=== PATIENT | male | born 1965 | race Hispanic/Latino ===

== ENCOUNTER 2023-11-17 06:25 | Day surgery (SDC) | payer OTHER ==
[~2023-11-17] VITALS: Ht 180.3 cm; Wt 154.2 kg
[2023-11-17] VITALS (11 sets, daily range): BP systolic 104–149; BP diastolic 49–79; PULSE 72–95; RESP 14–19
[~2023-11-17 06:25] MED LIST: GLIP5TAB15 PO; LISI20TA24 PO; METF-444 PO; PRAV40TA3 PO; SEMA2PEN SQ
[2023-11-17] MEDS: 0.9%NACL 1000ML 1,000 ML IV ONE (07:24)
[2023-11-17] MEDS ORDERED: LIDOCAINE PF 100MG/5ML (2%) SYRINGE 5ML ONE (07:53)
[2023-11-17] MEDS ORDERED: PROPOFOL 10 MG/ML 20ML VIAL IV ONE (07:53)
== END 2023-11-17 09:15 | disposition home or self-care (01) ==
LOC: DAH 06:25
PROVIDERS: ATTEND Surgery
DX: R14.2 Eructation (principal); K22.89 Other specified disease of esophagus; K25.9 Gastric ulcer, unspecified as acute or chronic, without hemorrhage or perforation; K31.89 Other diseases of stomach and duodenum; K30 Functional dyspepsia; I10 Essential (primary) hypertension; E78.00 Pure hypercholesterolemia, unspecified; E66.01 Morbid (severe) obesity due to excess calories; M13.0 Polyarthritis, unspecified; E11.319 Type 2 diabetes mellitus with unspecified diabetic retinopathy without macular edema; Z90.49 Acquired absence of other specified parts of digestive tract; Z79.899 Other long term (current) drug therapy; Z68.43 Body mass index [BMI] 50.0-59.9, adult
CPT/HCPCS: 82948 ×2; 43239; J7030 ×2; J2001; J2704; A4620; A4215; A4223; A7002; A4222; A4221; A4663; A4606; J3490